=== PATIENT | male | born 2000 | race Caucasian/White ===

== ENCOUNTER 2018-08-04 00:35 | Emergency (ER) | payer BC ==
[~2018-08-04] VITALS: Ht 175.3 cm; Wt 108.9 kg
[2018-08-04 01:13] LABS: ABSOLUTE LYMPHOCYTES 0.8 thou/uL (0.8-5.3); ABSOLUTE MONOCYTES 0.6 thou/uL (0.0-1.2); ABSOLUTE NEUTROPHILS 4.9 thou/uL (1.6-8.1); BASOPHILS 0.2 %; EOSINOPHILS 0.5 %; HEMATOCRIT 42.9 % (42.0-52.0); HEMOGLOBIN 14.6 gm/dL (14.0-18.0); MCH 27.8 pg (26.0-34.0); MCHC 34.1 g/dL (28.0-37.0); MCV 81.5 fL (80.0-100.0); MONOCYTES 9.9 %; MPV 8.5 fl. (7.2-11.1); NUCLEATED RBCS 0 /100WBC; PLATELET COUNT* 198 thou/uL (150-400); POLYS 76.4 %; RBC 5.27 mil/uL (4.50-6.00); RDW-CV 13.9 % (10.5-14.5); WBC 6.5 thou/uL (4.0-11.0)
[2018-08-04 01:22] LABS: ALBUMIN 3.9 g/dL (3.4-5.0); CALCIUM 8.7 mg/dL (8.5-10.1); POTASSIUM 3.5 mmol/L (3.5-5.1); TOTAL BILIRUBIN 0.4 mg/dL (<0.1-1.0); TOTAL PROTEIN 7.6 g/dL (6.4-8.2)
[2018-08-04 03:14] LABS: URINE BILIRUBIN NEGATIVE (Negative); URINE BLOOD NEGATIVE (Negative); URINE CLARITY CLEAR; URINE COLOR YELLOW; URINE GLUCOSE-RANDOM NEGATIVE (Negative); URINE KETONES NEGATIVE (Negative); URINE LEUKOCYTES-REFLEX NEGATIVE (Negative); URINE NITRITE-REFLEX NEGATIVE (Negative); URINE PROTEIN NEGATIVE (Negative); URINE SPECIFIC GRAVITY <= 1.005 (1.005-1.030); URINE UROBILINOGEN 0.2 E.U./dl (0.2-1.0)
[2018-08-04] MEDS ORDERED: ZOFRAN ODT4 MG DISSOLVE (03:41)
[2018-08-04] MEDS ORDERED: HYDROCODONE-AP1 EAC6 PO (03:41)
[2018-08-04] MEDS ORDERED: AUGMENTIN 875-1 EACH PO (03:41)
[2018-08-04 04:19] VITALS: BP 122/64
== END 2018-08-04 04:20 | disposition home or self-care (01) ==
LOC: M.ERS 00:35
PROVIDERS: Emergency Medicine Emergency Medical Services
DX: K52.9 Noninfective gastroenteritis and colitis, unspecified (principal); Z77.22 Contact with and (suspected) exposure to environmental tobacco smoke (acute) (chronic)

== ENCOUNTER 2018-10-06 15:17 | Emergency (ER) | payer BC ==
[~2018-10-06] VITALS: Ht 177.8 cm; Wt 108.9 kg
[~2018-10-06 15:17] MED LIST: AUGMENTIN 875-1 EACH PO; HYDROCODONE-AP1 EAC6 PO; ZOFRAN ODT4 MG DISSOLVE
[2018-10-06] MEDS ORDERED: KEFLEX500 M1 PO (15:26)
[2018-10-06 15:53] VITALS: BP 127/61
== END 2018-10-06 15:54 | disposition home or self-care (01) ==
LOC: M.ERS 15:17
DX: S40.862A Insect bite (nonvenomous) of left upper arm, initial encounter (principal); L03.114 Cellulitis of left upper limb; Z77.22 Contact with and (suspected) exposure to environmental tobacco smoke (acute) (chronic); W57.XXXA Bitten or stung by nonvenomous insect and other nonvenomous arthropods, initial encounter; Y92.89 Other specified places as the place of occurrence of the external cause; Y93.89 Activity, other specified; Y99.8 Other external cause status

== ENCOUNTER 2018-10-07 12:21 | Inpatient (IN) | payer BC ==
[~2018-10-07] VITALS: Ht 177.8 cm; Wt 108.9 kg
--- NOTE | ~2018-10-07 | CON ---
[facility] [address] [place] [address] CONSULTATION Name: DAQUAN BARNETT Room: [address] IN ..#: [id number] Admission: 10/07/18 Attend Phys: Brady Mera MD Discharge: Date of : 98 Report #: [id number] THIS REPORT FOR: //name// CC: ALEXANDER physician/PCP Brady Mera DATE OF SERVICE: 10/08/2018 CONSULTATION: Infectious Diseases. HISTORY OF PRESENT ILLNESS: The patient is a 18-year-old white male who has a strong history of recent brown recluse spider bite. The patient is generally in good health without medical problems. On the morning of 10/06/2018, the patient was awakened from sleep by sharp bite like pain on his left inner bicep area. The patient saw some kind of arthropod scampering across his arm, but he really in his awakening state cannot really identify the bug. However, later that morning in the bathtub, he saw a spider, which he clearly identified as a brown recluse spider with the violin marking on its shell. The patient noted erythema in the area of the bite with pain out of proportion. He came to the emergency room on 10/06/2018 at 3:20 in the afternoon. He was discharged on amoxicillin, Keflex and hydrocodone. At that time, the ER described an area of about 5-8 cm in the area of the bite without fluctuance or induration with mild tenderness. The patient returned to the ER the following day saying that his arm was getting worse. He did have more pain and more erythema. He was admitted to the hospital for close observation and further treatment. PAST MEDICAL HISTORY: Essentially unremarkable. The patient had oral surgery with bone graft in the past. He otherwise is in good health without medical problems. ALLERGIES: He has no drug allergies. FAMILY HISTORY: Noncontributory. SOCIAL HISTORY: The patient is a graduate from high school. 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 He denies use of tobacco, alcohol or drugs. REVIEW OF SYSTEMS: CONSTITUTIONAL: Negative for fevers, chills, sweats. Positive for pain and malaise. ENT: No headache, sinus congestion, sore throat, trouble swallowing. CHEST: No cough, chest pain, shortness of breath. GASTROINTESTINAL: No nausea, vomiting, except some nausea from the hydrocodone. No urinary problems. EXTREMITIES: No pain in the other 3 extremities. He rates the pain in his left [address] [place] [address] CONSULTATION Name: DAQUAN BARNETT Room: [address]#: [id number] Admission: 10/07/18 Attend Phys: Brady Mera MD Discharge: Date of : 98 Report #: [id number] arm as "9" on a scale of 1-10. PHYSICAL EXAMINATION: GENERAL: The patient appears comfortable (in spite of rating his pain at 9), not in any distress. VITAL SIGNS: Show maximum measured temperature of 98.8, blood pressure 135/56, pulses ranged from 77-95. SKIN: Shows obvious changes consistent with the brown recluse spider bite. There is erythema in the left upper inner arm that goes from the axilla to somewhat beyond the elbow. In the central area, there is a serpiginous area of bluish white skin about 5 cm x 2 cm and part of this, there is a purple early necrotic patch about 3 x 1 cm. At this point, there is no actual break in the epithelium. There is no drainage. The erythema is warm. The bicep is somewhat swollen compared to the other side. Range of motion is good, although the patient finds that his pain is increased when he lays his arm down. I cannot appreciate any specific adenopathy, although the patient had rather full axilla. He had some discomfort with moving the arm. Skin and other extremities are otherwise unremarkable. HEENT: Negative. HEART, LUNGS AND ABDOMEN: Normal. LABORATORY DATA: White count is 5.3, hemoglobin 15.4 down from 15.9 yesterday, platelets 145,000. Electrolytes, BUN and creatinine are normal, glucose was 212 initially, now down to 134. Lactate is 0.7. IMPRESSION: The appearance of the wound is certainly suggestive of a brown recluse spider bite with areas of necrosis surrounded by areas of relative hypovascularity followed by a large area of increased erythema and inflammation. Also the perception of pain out of proportion to the appearance of the injury is typical of brown recluse spider. The treatment of brown recluse spider is somewhat frustrating. Generally, surgical resection of the envenomated area is generally not recommended. If there are large areas of gatito necrosis, they may benefit from debridement. Antibiotics may play a secondary role as the necrotic tissue can be a breathing ground for bacteria. Dapsone for some reason has been found to reduce some of the inflammation. Topical steroids could be helpful. The worst case area of the brown recluse spider is where it can develop hemolysis and multisystem failure. We want to do a followup CBC, check coagulation studies, LDH and chemistries. At this point, the patient does not appear at all toxic, 48 hours after the bite. So, I suspect we are not going to see this severe syndrome. We can continue the Rocephin for now. Dapsone can cause a hemolytic anemia in its own right in people who are G6PD deficient, so it may be worthwhile to screen for this as well. I appreciate the opportunity of input in the care of this pleasant gentleman. I [address] [address] CONSULTATION Name: DAQUAN BARNETT Room: [address] IN M.R.#: [id number] Admission: 10/07/18 Attend Phys: Bardy Mera MD Discharge: Date of : 98 Report #: [id number] marked the extent of the erythema with an ink pen. Dr. Ledezma will return tomorrow for further infectious disease followup. By: [id number] Carter MD /nt
[~2018-10-07 12:21] MED LIST changes: +KEFLEX500 M1 PO
[2018-10-07 12:28] VITALS: BP 129/78
[2018-10-07 13:09] LABS: HEMATOCRIT 47.8 % (42.0-52.0); HEMOGLOBIN 15.9 gm/dL (14.0-18.0); MCH 27.1 pg (26.0-34.0); MCHC 33.3 g/dL (28.0-37.0); MCV 81.5 fL (80.0-100.0); MPV 8.9 fl. (7.2-11.1); RBC 5.86 mil/uL (4.50-6.00); RDW-CV 13.7 % (10.5-14.5); WBC 7.7 thou/uL (4.0-11.0)
[2018-10-07 13:13] LABS: CALCIUM 9.1 mg/dL (8.5-10.1); POTASSIUM 3.9 mmol/L (3.5-5.1)
[2018-10-07 13:51] VITALS: BP 129/78
[2018-10-07 14:14] VITALS: BP 112/62
[2018-10-07 16:00] VITALS: BP 106/49
[2018-10-07 20:25] VITALS: BP 118/61
[2018-10-08 05:11] LABS: ABSOLUTE EOSINOPHILS 0.3 thou/uL (0.0-0.7); ABSOLUTE LYMPHOCYTES 0.7 thou/uL (0.8-5.3); ABSOLUTE MONOCYTES 0.3 thou/uL (0.0-1.2); BASOPHILS 0.2 %; EOSINOPHILS 5.9 %; HEMOGLOBIN 15.4 gm/dL (14.0-18.0); LYMPHOCYTES 12.6 %; MCH 28.1 pg (26.0-34.0); MCHC 34.2 g/dL (28.0-37.0); MCV 82.1 fL (80.0-100.0); MONOCYTES 5.1 %; MPV 9.1 fl. (7.2-11.1); NUCLEATED RBCS 0 /100WBC; PLATELET COUNT* 149 thou/uL (150-400); POLYS 76.2 %; RBC 5.48 mil/uL (4.50-6.00); WBC 5.3 thou/uL (4.0-11.0)
[2018-10-08 05:18] LABS: CALCIUM 8.3 mg/dL (8.5-10.1); CREATININE 1.1 mg/dL (0.6-1.3); POTASSIUM 3.4 mmol/L (3.5-5.1)
[2018-10-08 07:25] VITALS: BP 113/56
[2018-10-08 15:34] VITALS: BP 110/56
[2018-10-08 16:09] LABS: GLYCOHEMOGLOBIN (HGB A1C) 5.6 % (4.8-5.6)
[2018-10-08 16:11] LABS: ABSOLUTE EOSINOPHILS 0.3 thou/uL (0.0-0.7); ABSOLUTE LYMPHOCYTES 0.6 thou/uL (0.8-5.3); ABSOLUTE MONOCYTES 0.3 thou/uL (0.0-1.2); ABSOLUTE NEUTROPHILS 3.2 thou/uL (1.6-8.1); BASOPHILS 0.2 %; EOSINOPHILS 6.9 %; HEMATOCRIT 45.3 % (42.0-52.0); HEMOGLOBIN 15.4 gm/dL (14.0-18.0); MCH 27.7 pg (26.0-34.0); MCV 81.6 fL (80.0-100.0); MONOCYTES 6.9 %; NUCLEATED RBCS 0 /100WBC; PLATELET COUNT* 152 thou/uL (150-400); RBC 5.55 mil/uL (4.50-6.00); RDW-CV 14.1 % (10.5-14.5); WBC 4.4 thou/uL (4.0-11.0)
[2018-10-08 16:20] LABS: APTT 29.3 Seconds (25.0-31.3); INR 1.2; PROTIME 12.3 Seconds (9.20-11.50)
[2018-10-08 16:41] LABS: ALBUMIN 3.7 g/dL (3.4-5.0); CREATININE 1.1 mg/dL (0.6-1.3); POTASSIUM 4.3 mmol/L (3.5-5.1); TOTAL BILIRUBIN 0.7 mg/dL (<0.1-1.0); TOTAL PROTEIN 7.1 g/dL (6.4-8.2)
[2018-10-09 04:08] LABS: ABSOLUTE EOSINOPHILS 0.3 thou/uL (0.0-0.7); ABSOLUTE LYMPHOCYTES 1.3 thou/uL (0.8-5.3); ABSOLUTE MONOCYTES 0.6 thou/uL (0.0-1.2); ABSOLUTE NEUTROPHILS 3.3 thou/uL (1.6-8.1); BASOPHILS 0.2 %; EOSINOPHILS 6.1 %; HEMATOCRIT 43.7 % (42.0-52.0); HEMOGLOBIN 14.8 gm/dL (14.0-18.0); LYMPHOCYTES 23.4 %; MCH 27.8 pg (26.0-34.0); MCHC 33.9 g/dL (28.0-37.0); MONOCYTES 10.2 %; MPV 8.9 fl. (7.2-11.1); NUCLEATED RBCS 0 /100WBC; PLATELET COUNT* 157 thou/uL (150-400); POLYS 60.1 %; RBC 5.33 mil/uL (4.50-6.00); RDW-CV 13.7 % (10.5-14.5); WBC 5.5 thou/uL (4.0-11.0)
[2018-10-09 04:20] LABS: CALCIUM 8.8 mg/dL (8.5-10.1); CREATININE 0.9 mg/dL (0.6-1.3); POTASSIUM 3.7 mmol/L (3.5-5.1)
[2018-10-09 07:50] VITALS: BP 126/60
[2018-10-09 18:09] LABS: HEMOGLOBIN 14.9 g/dL (13.0-17.7)
[2018-10-09 19:45] VITALS: BP 139/72
[2018-10-10] VITALS: BP 130/85
[2018-10-10 04:00] VITALS: BP 113/55
[2018-10-10 07:30] VITALS: BP 103/54
[2018-10-10 16:30] VITALS: BP 144/80
[2018-10-10 20:15] VITALS: BP 133/77
[2018-10-11 07:56] VITALS: BP 124/74
[2018-10-11] MEDS ORDERED: CEFDINIR300 MG PO ×2 (13:38→13:39)
[2018-10-11] MEDS ORDERED: DYNACIN100 MG PO (13:39)
[2018-10-11] MEDS ORDERED: HYDROCODON-ACE1 EAC7 PO (13:39)
[2018-10-11] MEDS ORDERED: DOK PLUS TABLE1 EACH PO (13:39)
[2018-10-11 13:50] VITALS: BP 124/74
[2018-10-11 14:05] LABS: GLUCOSE 6-P-D 10.9 U/g Hb (4.6-13.5)
[2018-10-11 14:30] LABS: ABSOLUTE EOSINOPHILS 0.3 thou/uL (0.0-0.7); ABSOLUTE LYMPHOCYTES 1.6 thou/uL (0.8-5.3); ABSOLUTE MONOCYTES 0.6 thou/uL (0.0-1.2); ABSOLUTE NEUTROPHILS 4.3 thou/uL (1.6-8.1); BASOPHILS 0.3 %; EOSINOPHILS 4.4 %; HEMATOCRIT 44.7 % (42.0-52.0); LYMPHOCYTES 23.4 %; MCH 27.4 pg (26.0-34.0); MCHC 33.6 g/dL (28.0-37.0); MCV 81.5 fL (80.0-100.0); MONOCYTES 9.3 %; MPV 8.3 fl. (7.2-11.1); NUCLEATED RBCS 0 /100WBC; PLATELET COUNT* 209 thou/uL (150-400); POLYS 62.6 %; RBC 5.49 mil/uL (4.50-6.00); RDW-CV 13.9 % (10.5-14.5); WBC 6.9 thou/uL (4.0-11.0)
[2018-10-11 14:36] LABS: CALCIUM 9.1 mg/dL (8.5-10.1); POTASSIUM 3.8 mmol/L (3.5-5.1)
== END 2018-10-11 15:25 | disposition home or self-care (01) | DRG 603 ==
LOC: M.ERS 12:21 → M.TBA-ER 13:07 → M.ORTHSURG 13:07
PROVIDERS: Emergency Medicine Emergency Medical Services; Internal Medicine Infectious Disease; ADMIT Family Medicine
PROC: 3E0234Z Introduction of Serum, Toxoid and Vaccine into Muscle, Percutaneous Approach (ICD-10-PCS; principal; 2018-10-09)
DX: L03.113 Cellulitis of right upper limb (principal); L53.9 Erythematous condition, unspecified; L03.114 Cellulitis of left upper limb; R73.03 Prediabetes; F43.9 Reaction to severe stress, unspecified; Z77.22 Contact with and (suspected) exposure to environmental tobacco smoke (acute) (chronic); Z23 Encounter for immunization; Z79.899 Other long term (current) drug therapy

== ENCOUNTER → 2018-10-27 | Day surgery (SDC) | payer BC ==
[~2018-10-27] MED LIST changes: +CEFDINIR300 MG PO; +DOK PLUS TABLE1 EACH PO; +DYNACIN100 MG PO; +HYDROCODON-ACE1 EAC7 PO; +IBUPROFEN 200200 M1 PO; +OXYCODONE-ACET1 EACH PO; +TYLENOL325 MG PO
--- NOTE | ~2018-10-27 | OP ---
[address] [address] OPERATIVE REPORT Name: ERICKADAQUAN MATHIS Room: [facility]#: [id number] Admission: 10/27/18 Attend Phys: Angelito Frias DO Discharge: Date of : 98 Report #: [id number] THIS REPORT FOR: //name// CC: Angelito Frias [facility] physician/PCP DICTATED BY: Eduard Gonzalez DO DATE OF SERVICE: 10/27/2018 PREOPERATIVE DIAGNOSIS: Left upper extremity spider bite wound with eschar. POSTOPERATIVE DIAGNOSIS: Left upper extremity spider bite wound with eschar. PRIMARY SURGEON: Angelito Frias DO. COSURGEON: Eduard Gonzalez DO, PGY3. WAREHOUSE SHIPPING ASSOCIATE: MS Phu4. OPERATION PERFORMED: Sharp excisional debridement of left upper extremity wound with eschar. ANESTHESIA TYPE: General. ESTIMATED BLOOD LOSS: 10 mL. SPECIMEN REMOVED: Eschar. COMPLICATIONS: None. FINDINGS: Left upper extremity wound. Pre and postop dimension 6 x 3 cm. Depth of dissection was dermis and superficial subcutaneous tissue. INDICATION FOR PROCEDURE: The patient is a pleasant 18-year-old male who presented to the office after recent admission to the hospital after a brown recluse spider bite to the left upper extremity. The patient was found to have large wound with eschar to the anterior mid bicep. I recommended a sharp excisional debridement with possible wound VAC placement. Full discussion of procedure, alternatives, risks and possible complications discussed include but not limited to bleeding, infection, postoperative pain, scarring, need for further debridement, wound VAC, poor healing time and anesthesia risks. The patient was understanding of the risks and agreed to proceed with surgery. OPERATIVE TECHNIQUE: The patient was again seen and examined in preoperative holding. Fully informed written consent was obtained. Again, [place] [address] OPERATIVE REPORT Name: DAQUAN [facility]NETT [id number] Admission: 10/27/18 Attend Phys: Angelito Frias, Discharge: Date of : 98 Report #: [id number] of procedure, alternatives, risks and possible complications discussed. The patient again voiced understanding of risks and agreed to proceed. PREOPERATIVE ANTIBIOTICS: 2 g Ancef were given. DESCRIPTION OF PROCEDURE: The patient was subsequently transferred to the operating room suite and placed on the operating room table in supine position. At this time, anesthesia induced general anesthesia via LMA and this was successful. SCDs were placed to bilateral lower extremity calves. Grounding pad was placed to right lateral thigh. Left arm was placed on an arm table, right arm was tucked. All patient's extremities were padded and protected. The patient was prepped and draped using standard sterile fashion. Time-out was performed prior to onset of procedure. Using a 15 blade scalpel, the eschar was sharply dissected free. A depth of dissection was down to dermis and superficial subcutaneous tissue. There was good blood flow to all tissues. Once the eschar was removed, the wound was noted to be 6 x 3 cm. Wound was copiously irrigated. Hemostasis was achieved with direct pressure and electrocautery. Sterile dressing was then applied, Mepilex Ag dressing and a Kerlix wrap. The patient tolerated the procedure well and was extubated in the OR, transferred to PACU in stable condition after a brief recovery from anesthesia. PLAN: Discharged home. Follow up in the office with Dr. Frias in 1 week. By: [id number] Frias DO /nt
--- NOTE | 2018-10-30 18:06 | PATH ---
[address] [address] PATHOLOGY RPT PROCEDURE Name: GINAYESICAOneliaDAQUAN [id number] Admission: 10/27/18 Date of : 98 Discharge: Report #: [id number] Path Case #: [id number] [facility] Accession Number: [id number] . 01 Material submitted: . arm - LEFT UPPER ARM DEBRIDMENT TISSUE. Modifiers: left, upper . 01 Clinical history: . Left upper arm spider bite or sting. . 02 Diagnosis: Left upper arm debridement tissue: - Acutely inflamed and necrotic benign skin and fibrofatty tissue. (BETY:juan ramon; 10/30/2018) MBR/10/30/2018 . 02 Electronically signed: . Edi Cox MD, Pathologist NPI- [id number] . 01 Gross description: . Received in formalin labeled "Daquan Calvo, left upper arm debridement tissue" is a 3.5 x 2.5 x 0.5 cm aggregate of moe-red necrotic soft tissue. One piece of paige-pink possibly viable tissue is present measuring 1.2 cm in greatest dimension. Core Blower Operator sections are submitted in cassette A1. [place] [place]28/2018[place] SYC/SYC . 02 Pathologist provided ICD-10: L08.9 . 02 CPT . 006088 Specimen Comment: A courtesy copy of this report has been sent to Specimen Comment: [phone]. Specimen Comment: Report sent to Performed at: [address], [place], [place] [id number] MD Cachorro Viera MD Phone: [phone] Performed at: [address] [facility] [address], [place], [place] [id number] MD Edi Cox MD Phone: [phone]
== END | disposition home or self-care (01) ==
LOC: M.SUR 06:39
DX: S40.862D Insect bite (nonvenomous) of left upper arm, subsequent encounter (principal); R23.4 Changes in skin texture; Z87.19 Personal history of other diseases of the digestive system; Z91.040 Latex allergy status; Z79.899 Other long term (current) drug therapy; Z79.891 Long term (current) use of opiate analgesic; Z98.890 Other specified postprocedural states; W57.XXXD Bitten or stung by nonvenomous insect and other nonvenomous arthropods, subsequent encounter